=== PATIENT | male | born 1995 | race Two or more races ===

== ENCOUNTER 2023-03-25 08:32 | Inpatient (IN) | payer MEDICAID ==
[~2023-03-25] VITALS: Ht 188 cm; Wt 111.6 kg
[2023-03-25] MEDS ORDERED: SODIUM CHLORIDE 0.9% 1,000 ML IV ONE (09:00)
[2023-03-25 09:20] LABS: Basophils # (auto) 0 10 ^3/uL (0-0.2); Basophils % (auto) 0.5 % (0.0-2.0); Eosinophils # (auto) 0.1 10 ^3/uL (0-0.8); Eosinophils % (auto) 0.7 % (0.0-7.0); Hemoglobin 15.5 g/dL (13.5-17.5); Lymphocytes # (auto) 1.2 10 ^3/uL (0.4-5.4); Mean Corpuscular Hemoglobin 29.4 pg (28.0-32.0); Mean Corpuscular Hgb Conc. 34.5 g/dL (32.0-36.0); Mean Corpuscular Volume 85.3 fL (80.0-100.0); Monocytes # (auto) 0.4 10 ^3/uL (0-1.3); Monocytes % (auto) 5.5 % (0.0-12.0); Neutrophils # (auto) 5.9 10 ^3/uL (1.6-8.6); Neutrophils % (auto) 77.3 % (37.0-80.0); Nucleated Red Blood Cells % 0.9 %; Red Blood Cells 5.27 10^6/uL (4.5-5.90); Red Cell Distribution Width 13.3 % (11.8-14.3); White Blood Cell 7.7 10^3/uL (4.4-10.8)
[2023-03-25] MEDS ORDERED: methylPREDNISolone SOD SUCC 40 MG/ML VL IM ONE (09:30)
[2023-03-25] MEDS ORDERED: CARISOPRODOL 350 MG TAB PO ONE (09:30)
[2023-03-25 09:37] LABS: Alanine Aminotransferase 27 U/L (7-40); Albumin 4.7 g/dL (3.2-4.8); Alkaline Phosphatase 78 U/L (46-116); Aspartate Aminotransferase 17 U/L (13-40); BUN/Creatinine Ratio 16.1 (10.0-20.0); Blood Urea Nitrogen 10 mg/dL (9-23); Calcium 9.2 mg/dL (8.5-10.1); Chloride 110 mmol/L (98-107); Glucose 110 mg/dL (74-106); Potassium 3.6 mmol/L (3.5-5.1); Sodium 142 mmol/L (136-145)
[2023-03-25 09:38] LABS: Bilirubin, Total 0.8 mg/dL (0.2-1.0); Total Protein 7.6 g/dL (5.7-8.2)
[2023-03-25] MEDS ORDERED: DOCUSATE SOD 100 MG CAP PO PRN (14:15)
[2023-03-25] MEDS ORDERED: ONDANSETRON HCL 4 MG/2 ML VIAL IV PRN (14:15)
[2023-03-25 16:08] LABS: Urine Bacteria NONE SEEN /hpf (None Seen); Urine Blood Negative /uL (Negative); Urine Clarity HAZY (Clear); Urine Color Yellow (Yellow); Urine Mucus MANY (None Seen); Urine Protein, UAD TRACE (Negative); Urine Specific Gravity 1.032 (1.001-1.035); Urine Urobilinogen Normal (Negative); Urine WBC 2 /hpf (0 - 3); Urine pH 5.5 (5.0-8.0)
[2023-03-25 16:40] LABS: Amphetamine Screen, Urine Neg (NEGATIVE); Benzodiazephine Screen, Urine Neg (NEGATIVE)
[2023-03-25 16:41] LABS: Barbiturate Scree,Urine Neg (NEGATIVE); Cannabinoid Screen, Urine Neg (NEGATIVE); Cocaine Screen, Urine Neg (NEGATIVE); Opiate Scree,Urine Neg (NEGATIVE); Phencyclidine Screen, Urine Neg (NEGATIVE)
[2023-03-25] MEDS: DexAMETHasone SOD PHOS 4 MG/1ML SDV INJ IV SCH (18:56)
[2023-03-25 20:00] VITALS: O2SAT 97
[2023-03-25] MEDS: SODIUM CHLORIDE 0.9% 1,000 ML IV SCH ×2 (20:19→22:35)
[2023-03-25] MEDS ORDERED: LORazepam 2MG/ML-1ML VIAL IV PRN (20:45)
[2023-03-26] MEDS: DexAMETHasone SOD PHOS 4 MG/1ML SDV INJ IV SCH ×5 (01:51→23:56)
[2023-03-26] MEDS: SODIUM CHLORIDE 0.9% 1,000 ML IV SCH ×3 (07:02→23:35)
[2023-03-26 07:29] LABS: Basophils # (auto) 0 10 ^3/uL (0-0.2); Basophils % (auto) 0.1 % (0.0-2.0); Eosinophils # (auto) 0 10 ^3/uL (0-0.8); Hematocrit 40.7 % (41.0-53.0); Hemoglobin 14.1 g/dL (13.5-17.5); Lymphocytes # (auto) 0.9 10 ^3/uL (0.4-5.4); Mean Corpuscular Hemoglobin 29.4 pg (28.0-32.0); Mean Corpuscular Hgb Conc. 34.7 g/dL (32.0-36.0); Mean Corpuscular Volume 84.6 fL (80.0-100.0); Monocytes # (auto) 0.5 10 ^3/uL (0-1.3); Neutrophils % (auto) 84.9 % (37.0-80.0); Red Blood Cells 4.81 10^6/uL (4.5-5.90); Red Cell Distribution Width 13.1 % (11.8-14.3); White Blood Cell 9.4 10^3/uL (4.4-10.8)
[2023-03-26 07:49] LABS: Alanine Aminotransferase 23 U/L (7-40); Alkaline Phosphatase 68 U/L (46-116); Anion Gap 6.4 (5-15); Blood Urea Nitrogen 11 mg/dL (9-23); Calcium 9.1 mg/dL (8.5-10.1); Carbon Dioxide 25.6 mmol/L (20-30); Chloride 109 mmol/L (98-107); Glucose 116 mg/dL (74-106); Sodium 141 mmol/L (136-145)
[2023-03-26 07:50] LABS: Albumin 4.3 g/dL (3.2-4.8); Aspartate Aminotransferase 14 U/L (13-40)
[2023-03-26 07:51] LABS: Bilirubin, Total 0.8 mg/dL (0.2-1.0); Total Protein 6.9 g/dL (5.7-8.2)
[2023-03-26 08:15] VITALS: PULSE 89; RESP 16; O2SAT 99
[2023-03-26 20:00] VITALS: PULSE 94; RESP 18; O2SAT 97
[2023-03-26] MEDS: MORPHINE SULFATE INJ 2 MG/ml SYRG IV PRN (21:23)
[2023-03-26 23:30] VITALS: PULSE 78; RESP 17
[2023-03-27] VITALS (7 sets, daily range): BP systolic 128–143; BP diastolic 61–73; PULSE 63–88; RESP 14–20; TEMP 36.4; O2SAT 95–100
[2023-03-27] MEDS ORDERED: DULO60CA41 PO (00:19)
[2023-03-27] MEDS: DexAMETHasone SOD PHOS 4 MG/1ML SDV INJ IV SCH ×3 (06:02→17:20)
[2023-03-27 07:05] LABS: Chloride 108 mmol/L (98-107); Potassium 4.5 mmol/L (3.5-5.1); Sodium 138 mmol/L (136-145)
[2023-03-27 07:07] LABS: Calcium 8.7 mg/dL (8.7-10.4)
[2023-03-27 07:11] LABS: Glucose 114 mg/dL (74-106)
[2023-03-27 07:12] LABS: BUN/Creatinine Ratio 16.9 (10.0-20.0); Blood Urea Nitrogen 10 mg/dL (9-23)
[2023-03-27 07:47] LABS: Basophils # (auto) 0 10 ^3/uL (0-0.2); Basophils % (auto) 0.1 % (0.0-2.0); Eosinophils # (auto) 0 10 ^3/uL (0-0.8); Hematocrit 38.2 % (41.0-53.0); Hemoglobin 13.2 g/dL (13.5-17.5); Mean Corpuscular Hemoglobin 29.6 pg (28.0-32.0); Mean Corpuscular Hgb Conc. 34.5 g/dL (32.0-36.0); Mean Corpuscular Volume 85.8 fL (80.0-100.0); Monocytes # (auto) 0.6 10 ^3/uL (0-1.3); Monocytes % (auto) 5.9 % (0.0-12.0); Neutrophils # (auto) 8.2 10 ^3/uL (1.6-8.6); Red Blood Cells 4.46 10^6/uL (4.5-5.90); Red Cell Distribution Width 13.2 % (11.8-14.3); White Blood Cell 9.8 10^3/uL (4.4-10.8)
[2023-03-27] MEDS: SODIUM CHLORIDE 0.9% 1,000 ML IV SCH ×2 (08:36→17:19)
[2023-03-27] MEDS: MORPHINE SULFATE INJ 2 MG/ml SYRG IV PRN (22:05)
[2023-03-28] VITALS (7 sets, daily range): BP systolic 132–149; BP diastolic 64–73; PULSE 62–98; RESP 14–22; TEMP 97.9–98.9; O2SAT 96–98
[2023-03-28] MEDS: DexAMETHasone SOD PHOS 4 MG/1ML SDV INJ IV SCH ×4 (00:49→17:21)
[2023-03-28] MEDS: SODIUM CHLORIDE 0.9% 1,000 ML IV SCH ×3 (00:49→17:21)
[2023-03-28 07:30] LABS: Basophils # (auto) 0 10 ^3/uL (0-0.2); Eosinophils # (auto) 0 10 ^3/uL (0-0.8); Hematocrit 39.8 % (41.0-53.0); Hemoglobin 13.9 g/dL (13.5-17.5); Lymphocytes # (auto) 0.9 10 ^3/uL (0.4-5.4); Lymphocytes % (auto) 10.3 % (10.0-50.0); Mean Corpuscular Hemoglobin 29.8 pg (28.0-32.0); Mean Corpuscular Hgb Conc. 34.8 g/dL (32.0-36.0); Mean Corpuscular Volume 85.7 fL (80.0-100.0); Monocytes # (auto) 0.5 10 ^3/uL (0-1.3); Monocytes % (auto) 5.8 % (0.0-12.0); Neutrophils # (auto) 7.6 10 ^3/uL (1.6-8.6); Neutrophils % (auto) 83.9 % (37.0-80.0); Nucleated Red Blood Cells % 0.1 %; Red Blood Cells 4.65 10^6/uL (4.5-5.90); Red Cell Distribution Width 13.2 % (11.8-14.3); White Blood Cell 9.1 10^3/uL (4.4-10.8)
[2023-03-28 08:03] LABS: Chloride 108 mmol/L (98-107); Potassium 3.9 mmol/L (3.5-5.1); Sodium 140 mmol/L (136-145)
[2023-03-28 08:04] LABS: Anion Gap 7.8 (5-15); Calcium 8.4 mg/dL (8.5-10.1); Carbon Dioxide 24.2 mmol/L (20-30)
[2023-03-28 08:09] LABS: Blood Urea Nitrogen 11 mg/dL (9-23); Glucose 111 mg/dL (74-106)
[2023-03-28] MEDS ORDERED: LACTULOSE 20Gm/30ML SOLN PO ONE (10:45)
[2023-03-28] MEDS: MORPHINE SULFATE INJ 2 MG/ml SYRG IV PRN ×2 (15:39→21:41)
[2023-03-28] MEDS: DOCUSATE SOD 100 MG CAP PO SCH (21:42)
[2023-03-29] VITALS (8 sets, daily range): BP systolic 119–151; BP diastolic 60–83; PULSE 58–80; RESP 16–20; TEMP 97.8–98.8; O2SAT 97–98
[2023-03-29] MEDS: DexAMETHasone SOD PHOS 4 MG/1ML SDV INJ IV SCH ×3 (01:20→12:24)
[2023-03-29] MEDS: MORPHINE SULFATE INJ 2 MG/ml SYRG IV PRN ×3 (06:25→22:14)
[2023-03-29] MEDS: SODIUM CHLORIDE 0.9% 1,000 ML IV SCH ×3 (06:26→18:58)
[2023-03-29 06:40] LABS: Basophils # (auto) 0 10 ^3/uL (0-0.2); Basophils % (auto) 0.1 % (0.0-2.0); Eosinophils # (auto) 0 10 ^3/uL (0-0.8); Hematocrit 41.8 % (41.0-53.0); Hemoglobin 14.3 g/dL (13.5-17.5); Lymphocytes # (auto) 1.1 10 ^3/uL (0.4-5.4); Lymphocytes % (auto) 10.8 % (10.0-50.0); Mean Corpuscular Hemoglobin 29.6 pg (28.0-32.0); Mean Corpuscular Hgb Conc. 34.3 g/dL (32.0-36.0); Mean Corpuscular Volume 86.3 fL (80.0-100.0); Monocytes # (auto) 0.8 10 ^3/uL (0-1.3); Monocytes % (auto) 7.7 % (0.0-12.0); Neutrophils # (auto) 8.3 10 ^3/uL (1.6-8.6); Neutrophils % (auto) 81.4 % (37.0-80.0); Red Blood Cells 4.84 10^6/uL (4.5-5.90); Red Cell Distribution Width 13.1 % (11.8-14.3); White Blood Cell 10.2 10^3/uL (4.4-10.8)
[2023-03-29 07:01] LABS: Chloride 108 mmol/L (98-107); Sodium 139 mmol/L (136-145)
[2023-03-29 07:02] LABS: Anion Gap 4.5 (5-15); Calcium 8.5 mg/dL (8.7-10.4); Carbon Dioxide 26.5 mmol/L (20-30)
[2023-03-29 07:07] LABS: Blood Urea Nitrogen 11 mg/dL (9-23); Glucose 112 mg/dL (74-106)
[2023-03-29] MEDS: DOCUSATE SOD 100 MG CAP PO SCH ×2 (09:32→22:00)
[2023-03-29 11:05] LABS: Hepatitis B Surface Antigen Negative (Negative)
[2023-03-29 11:26] LABS: Hepatitis C Antibody Negative (Negative)
[2023-03-29] MEDS ORDERED: DexAMETHasone SOD PHOS 10MG/1ML VIAL INJ IV ONE (12:45)
[2023-03-30] VITALS (8 sets, daily range): BP systolic 119–145; BP diastolic 57–76; PULSE 63–95; RESP 16–20; TEMP 98–98.3; O2SAT 96–99
[2023-03-30] MEDS: SODIUM CHLORIDE 0.9% 1,000 ML IV SCH ×3 (03:20→22:54)
[2023-03-30 06:03] LABS: Basophils # (auto) 0 10 ^3/uL (0-0.2); Eosinophils # (auto) 0 10 ^3/uL (0-0.8); Eosinophils % (auto) 0.1 % (0.0-7.0); Hematocrit 41.8 % (41.0-53.0); Hemoglobin 14.6 g/dL (13.5-17.5); Lymphocytes # (auto) 1.6 10 ^3/uL (0.4-5.4); Lymphocytes % (auto) 13.5 % (10.0-50.0); Mean Corpuscular Hemoglobin 29.7 pg (28.0-32.0); Mean Corpuscular Hgb Conc. 34.9 g/dL (32.0-36.0); Mean Corpuscular Volume 85.3 fL (80.0-100.0); Monocytes # (auto) 1.1 10 ^3/uL (0-1.3); Monocytes % (auto) 9.1 % (0.0-12.0); Neutrophils # (auto) 9.2 10 ^3/uL (1.6-8.6); Neutrophils % (auto) 77.3 % (37.0-80.0); Nucleated Red Blood Cells % 0.1 %; Red Cell Distribution Width 13.6 % (11.8-14.3); White Blood Cell 11.9 10^3/uL (4.4-10.8)
[2023-03-30 06:13] LABS: Chloride 108 mmol/L (98-107); Potassium 3.9 mmol/L (3.5-5.1); Sodium 139 mmol/L (136-145)
[2023-03-30 06:14] LABS: Anion Gap 5.3 (5-15); Carbon Dioxide 25.7 mmol/L (20-30)
[2023-03-30 06:15] LABS: Calcium 8.5 mg/dL (8.7-10.4)
[2023-03-30 06:19] LABS: Glucose 95 mg/dL (74-106)
[2023-03-30 07:47] LABS: BUN/Creatinine Ratio 21.2 (10.0-20.0); Blood Urea Nitrogen 11 mg/dL (9-23)
[2023-03-30] MEDS: DexAMETHasone SOD PHOS 10MG/1ML VIAL INJ IV SCH (09:40)
[2023-03-30] MEDS: DOCUSATE SOD 100 MG CAP PO SCH ×2 (09:41→22:55)
[2023-03-30] MEDS: MORPHINE SULFATE INJ 2 MG/ml SYRG IV PRN ×2 (14:44→20:16)
[2023-03-31 05:00] VITALS: BP 133/80; PULSE 56; RESP 16; TEMP 97.9; O2SAT 98
[2023-03-31 05:44] LABS: Basophils # (auto) 0.1 10 ^3/uL (0-0.2); Basophils % (auto) 1.1 % (0.0-2.0); Eosinophils # (auto) 0 10 ^3/uL (0-0.8); Eosinophils % (auto) 0.4 % (0.0-7.0); Hematocrit 43.3 % (41.0-53.0); Hemoglobin 14.9 g/dL (13.5-17.5); Lymphocytes # (auto) 1.7 10 ^3/uL (0.4-5.4); Lymphocytes % (auto) 15.8 % (10.0-50.0); Mean Corpuscular Hemoglobin 29.6 pg (28.0-32.0); Mean Corpuscular Hgb Conc. 34.4 g/dL (32.0-36.0); Mean Corpuscular Volume 85.9 fL (80.0-100.0); Monocytes % (auto) 9.4 % (0.0-12.0); Neutrophils # (auto) 7.8 10 ^3/uL (1.6-8.6); Neutrophils % (auto) 73.3 % (37.0-80.0); Nucleated Red Blood Cells % 0.1 %; Red Blood Cells 5.05 10^6/uL (4.5-5.90); Red Cell Distribution Width 13.5 % (11.8-14.3); White Blood Cell 10.6 10^3/uL (4.4-10.8)
[2023-03-31 05:58] LABS: Anion Gap 5.6 (5-15); Carbon Dioxide 26.4 mmol/L (20-30); Chloride 108 mmol/L (98-107); Potassium 3.9 mmol/L (3.5-5.1); Sodium 140 mmol/L (136-145)
[2023-03-31 05:59] LABS: Calcium 8.3 mg/dL (8.5-10.1)
[2023-03-31 06:04] LABS: BUN/Creatinine Ratio 17.9 (10.0-20.0); Blood Urea Nitrogen 12 mg/dL (9-23); Glucose 94 mg/dL (74-106)
[2023-03-31] MEDS: SODIUM CHLORIDE 0.9% 1,000 ML IV SCH ×3 (06:25→20:15)
[2023-03-31 08:00] VITALS: PULSE 48
[2023-03-31] MEDS: DexAMETHasone SOD PHOS 10MG/1ML VIAL INJ IV SCH (08:53)
[2023-03-31] MEDS: MORPHINE SULFATE INJ 2 MG/ml SYRG IV PRN ×3 (08:59→19:38)
[2023-03-31] MEDS: DOCUSATE SOD 100 MG CAP PO SCH ×2 (08:59→22:00)
[2023-03-31 09:00] VITALS: BP 120/66; PULSE 59; RESP 20; TEMP 98.2; O2SAT 98
[2023-03-31 12:43] VITALS: BP 143/65; PULSE 93; RESP 20; TEMP 97.9; O2SAT 99
[2023-03-31 20:00] VITALS: PULSE 65; RESP 18; O2SAT 97
[2023-03-31 22:00] VITALS: BP 121/66; PULSE 88; RESP 20; TEMP 98.4; O2SAT 100
[2023-04-01] MEDS: MORPHINE SULFATE INJ 2 MG/ml SYRG IV PRN ×2 (01:53→09:19)
[2023-04-01] MEDS: SODIUM CHLORIDE 0.9% 1,000 ML IV SCH ×2 (01:54→12:25)
[2023-04-01 05:00] VITALS: BP 121/75; PULSE 66; RESP 18; TEMP 97.9; O2SAT 100
[2023-04-01 08:00] VITALS: BP 134/74; PULSE 69; RESP 20; TEMP 98.2; O2SAT 98
[2023-04-01] MEDS: DOCUSATE SOD 100 MG CAP PO SCH (09:02)
[2023-04-01] MEDS: DexAMETHasone SOD PHOS 10MG/1ML VIAL INJ IV SCH (09:03)
[2023-04-01 09:24] VITALS: BP 134/74; PULSE 69; RESP 20; TEMP 98.2; O2SAT 98
[2023-04-01] MEDS ORDERED: METH4PAK PO (11:10)
[2023-04-01 12:45] VITALS: BP 128/74; PULSE 68; RESP 20; TEMP 98; O2SAT 98
[2023-04-01 15:56] VITALS: BP 128/74; PULSE 68; RESP 20; TEMP 98; O2SAT 98
[2023-04-01 16:52] VITALS: BP 137/63; PULSE 82; RESP 20; TEMP 98.1; O2SAT 99
== END 2023-04-01 17:51 | disposition home or self-care (01) | DRG 347 ==
LOC: ER 08:32 → TELE 14:18 → TELE-WESTW 03-26 22:25 → WEST WING 04-01 00:53
PROVIDERS: ADMIT Internal Medicine Geriatric Medicine; ATTEND Student in an Organized Health Care Education/Training Program
DX: M51.15 Intervertebral disc disorders with radiculopathy, thoracolumbar region (principal); G82.20 Paraplegia, unspecified; K59.00 Constipation, unspecified; T43.211A Poisoning by selective serotonin and norepinephrine reuptake inhibitors, accidental (unintentional), initial encounter
CPT/HCPCS: 36415; 70450; 72131; 72146; 72148; 76856; 80048; 80053; 80307; 81001; 82550; 85025; 86803; 87340; 96360; 96372; 97110; 97116; 97163; 97530; G0378; J1100; J2405

== ENCOUNTER 2023-04-16 23:29 | Emergency (ER) | payer MEDICAID ==
[~2023-04-16] VITALS: Ht 185.4 cm; Wt 107.0 kg
[~2023-04-16 23:29] MED LIST: DULO60CA41 PO; METH4PAK PO
[2023-04-17 04:42] LABS: Basophils # (auto) 0 10 ^3/uL (0-0.2); Basophils % (auto) 0.4 % (0.0-2.0); Eosinophils # (auto) 0.1 10 ^3/uL (0-0.8); Eosinophils % (auto) 0.8 % (0.0-7.0); Hematocrit 42.1 % (41.0-53.0); Hemoglobin 14.6 g/dL (13.5-17.5); Lymphocytes # (auto) 1.5 10 ^3/uL (0.4-5.4); Mean Corpuscular Hemoglobin 30.5 pg (28.0-32.0); Mean Corpuscular Hgb Conc. 34.5 g/dL (32.0-36.0); Mean Corpuscular Volume 88.2 fL (80.0-100.0); Monocytes # (auto) 0.7 10 ^3/uL (0-1.3); Neutrophils # (auto) 5.9 10 ^3/uL (1.6-8.6); Neutrophils % (auto) 72.8 % (37.0-80.0); Nucleated Red Blood Cells % 0.1 %; Red Blood Cells 4.78 10^6/uL (4.5-5.90); Red Cell Distribution Width 14.2 % (11.8-14.3); White Blood Cell 8.2 10^3/uL (4.4-10.8)
[2023-04-17 05:00] LABS: Alanine Aminotransferase 43 U/L (7-40); Albumin 4.3 g/dL (3.2-4.8); Alkaline Phosphatase 95 U/L (46-116); Anion Gap 8 (5-15); Aspartate Aminotransferase 17 U/L (13-40); BUN/Creatinine Ratio 19.7 (10.0-20.0); Bilirubin, Total 0.4 mg/dL (0.2-1.0); Blood Urea Nitrogen 13 mg/dL (9-23); Calcium 9.3 mg/dL (8.7-10.4); Carbon Dioxide 27 mmol/L (20-30); Chloride 106 mmol/L (98-107); Glucose 111 mg/dL (74-106); Potassium 4.1 mmol/L (3.5-5.1); Sodium 141 mmol/L (136-145); Total Protein 6.9 g/dL (5.7-8.2)
[2023-04-17 06:34] VITALS: BP 140/72; PULSE 89; RESP 18; TEMP 98.1; O2SAT 96
== END 2023-04-17 06:42 | disposition home or self-care (01) ==
LOC: ER 23:29
DX: R60.0 Localized edema (principal); Z98.890 Other specified postprocedural states
CPT/HCPCS: 36415; 80053; 83880; 84484; 85025; 85379; 93970

== ENCOUNTER 2023-08-07 08:35 | Emergency (ER) | payer MEDICAID ==
[~2023-08-07] VITALS: Ht 188 cm; Wt 127.7 kg
[2023-08-07 08:59] VITALS: BP 150/74; PULSE 80; RESP 18; TEMP 98.2; O2SAT 96
[2023-08-07] MEDS ORDERED: CEPH500C PO (09:02)
== END 2023-08-07 09:06 | disposition home or self-care (01) ==
LOC: ER 08:35
DX: L03.011 Cellulitis of right finger (principal)
CPT/HCPCS: 10060